=== PATIENT | female | born 1955 | race Caucasian/White ===

== ENCOUNTER 2020-01-09 09:37 | Outpatient (REF) | payer BC, SELFPAY ==
[2020-01-09 22:13] LABS: CREATININE 0.85 mg/dL (0.55-1.02); Calculated LDL 140 mg/dL (<100); Cholesterol 227 mg/dL (<200); HDL Cholesterol 70 mg/dL (40-60); TSH 0.17 uIU/mL (0.36-3.74); Triglyceride 89 mg/dL (<150)
== END 2020-01-09 09:57 ==
LOC: NCHCN 09:37
PROVIDERS: PCP Family Medicine; Visit Provider Family Medicine
DX: E03.9 Hypothyroidism, unspecified (principal); I10 Essential (primary) hypertension
CPT/HCPCS: 80061; 82565; 84443

== ENCOUNTER 2020-05-21 22:34 | Outpatient (REF) | payer BC, SELFPAY ==
[2020-05-21 22:17] LABS: Anion Gap 7.9 mmol/L (3-11); BUN 15 mg/dL (7-18); CO2 29.1 mmol/L (21.0-32.0); Calcium 9.4 mg/dL (8.5-10.1); Chloride 100 mmol/L (98-107); Glucose 111 mg/dL (74-106); Potassium 4.1 mmol/L (3.5-5.1); Sodium 137 mmol/L (136-145); TSH (W/Ref FT4) 1.85 uIU/mL (0.36-3.74)
== END 2020-05-21 22:54 ==
LOC: NCHCN 22:34
PROVIDERS: PCP Family Medicine; Visit Provider Family Medicine
DX: E03.9 Hypothyroidism, unspecified (principal); I10 Essential (primary) hypertension
CPT/HCPCS: 80048; 84443

== ENCOUNTER 2020-07-05 14:43 | Outpatient (REF) | payer BC, SELFPAY ==
[2020-07-09 03:41] LABS: SARS-CoV-2 RNA Undetected (Undetected); SARS-CoV-2 Specimen Source Nasopharynx
== END 2020-07-05 15:03 ==
LOC: NCHCN 14:43
PROVIDERS: PCP Family Medicine; Visit Provider Family Medicine
DX: Z20.828 Contact with and (suspected) exposure to other viral communicable diseases (principal)
CPT/HCPCS: U0003

== ENCOUNTER 2020-09-09 13:28 | Outpatient (REF) | payer BC, SELFPAY ==
[2020-09-12 02:42] LABS: SARS-CoV-2 RNA Undetected (Undetected); SARS-CoV-2 Specimen Source Nasal
== END 2020-09-09 13:48 ==
LOC: NCHCN 13:28
PROVIDERS: PCP Family Medicine; Visit Provider Family Medicine
DX: Z20.828 Contact with and (suspected) exposure to other viral communicable diseases (principal)
CPT/HCPCS: U0003

== ENCOUNTER 2021-06-11 18:18 | Outpatient (REF) | payer MEDICARE, BC, SELFPAY ==
[2021-06-11 19:13] LABS: ALT 51 U/L (14-59); AST 28 U/L (15-37); Alkaline Phosphatase 80 U/L (46-116); Anion Gap 9.3 mmol/L (3-11); BUN 20 mg/dL (7-18); Bilirubin, Total 0.4 mg/dL (0.2-1.0); CO2 27.7 mmol/L (21.0-32.0); CREATININE 0.9 mg/dL (0.55-1.02); Calcium 9.2 mg/dL (8.5-10.1); Calculated LDL 137 mg/dL (<100); Chloride 103 mmol/L (98-107); Cholesterol 234 mg/dL (<200); Glucose 103 mg/dL (74-106); HDL Cholesterol 84 mg/dL (40-60); Potassium 4.2 mmol/L (3.5-5.1); Sodium 140 mmol/L (136-145); TSH 1.13 uIU/mL (0.36-3.74); Total Protein 7.4 g/dL (6.4-8.2); Triglyceride 66 mg/dL (<150)
== END 2021-06-11 18:19 | disposition home or self-care (01) ==
LOC: NCHCN 18:18
PROVIDERS: PCP Family Medicine; Visit Provider Family Medicine
DX: Z00.00 Encounter for general adult medical examination without abnormal findings (principal); R73.03 Prediabetes; E78.49 Other hyperlipidemia; E66.9 Obesity, unspecified; E03.9 Hypothyroidism, unspecified; I10 Essential (primary) hypertension
CPT/HCPCS: 80053; 80061; 84443

== ENCOUNTER 2022-06-23 15:01 | Outpatient (REF) | payer MEDICARE, BC, SELFPAY ==
[2022-06-23 17:22] LABS: ALT 42 U/L (14-59); AST 29 U/L (15-37); Albumin 3.7 g/dL (3.4-5.0); Alkaline Phosphatase 81 U/L (46-116); Anion Gap 8.9 mmol/L (3-11); BUN 16 mg/dL (7-18); Bilirubin, Total 0.3 mg/dL (0.2-1.0); CO2 27.1 mmol/L (21.0-32.0); CREATININE 1.1 mg/dL (0.55-1.02); Calcium 9.3 mg/dL (8.5-10.1); Calculated LDL 126 mg/dL (<100); Chloride 103 mmol/L (98-107); Cholesterol 218 mg/dL (<200); Estimated GFR 49.25 (mL/min/1.73m2); Glucose 115 mg/dL (74-106); HDL Cholesterol 81 mg/dL (40-60); Potassium 3.7 mmol/L (3.5-5.1); Sodium 139 mmol/L (136-145); TSH 0.53 uIU/mL (0.36-3.74); Total Protein 7.4 g/dL (6.4-8.2); Triglyceride 56 mg/dL (<150)
== END 2022-06-23 15:02 | disposition home or self-care (01) ==
LOC: NCHCN 15:01
PROVIDERS: PCP Family Medicine; Visit Provider Family Medicine
DX: E03.9 Hypothyroidism, unspecified (principal); I10 Essential (primary) hypertension; E78.41 Elevated Lipoprotein(a); R73.03 Prediabetes
CPT/HCPCS: 80053; 80061; 83036; 84443

== ENCOUNTER 2022-10-23 13:13 | Outpatient (REF) | payer MEDICARE, BC, SELFPAY ==
[2022-10-23 16:05] LABS: COMMENT (LAB VIEW ONLY) 22.29 mg/dL; Microalb ug/mg Crea 11.7 ug/mg Cr
[2022-10-23 16:22] LABS: BUN 23 mg/dL (7-18); CREATININE 1.1 mg/dL (0.55-1.02); Calcium 9.5 mg/dL (8.5-10.1); Chloride 100 mmol/L (98-107); Estimated GFR 54.39 (mL/min/1.73m2); Glucose 98 mg/dL (74-106); Potassium 4.3 mmol/L (3.5-5.1); Sodium 138 mmol/L (136-145)
== END 2022-10-23 13:14 | disposition home or self-care (01) ==
LOC: NCHCN 13:13
PROVIDERS: PCP Family Medicine; Visit Provider Family Medicine
DX: N18.31 Chronic kidney disease, stage 3a (principal)
CPT/HCPCS: 80048; 82043; 82570

== ENCOUNTER 2023-11-08 16:20 | Outpatient (REF) | payer MEDICARE, BC, SELFPAY ==
[2023-11-08 16:26] LABS: Anion Gap 10.5 mmol/L (3-11); BUN 20 mg/dL (7-18); CO2 26.5 mmol/L (21.0-32.0); Calcium 9.6 mg/dL (8.5-10.1); Calculated LDL 128 mg/dL (<100); Chloride 101 mmol/L (98-107); Cholesterol 239 mg/dL (<200); Estimated GFR 60.61 (mL/min/1.73m2); Glucose 112 mg/dL (74-106); HDL Cholesterol 95 mg/dL (40-60); Potassium 3.8 mmol/L (3.5-5.1); Sodium 138 mmol/L (136-145); Triglyceride 81 mg/dL (<150)
[2023-11-08 16:35] LABS: Hemoglobin A1C 5.8 % (<5.7)
== END 2023-11-08 16:21 | disposition home or self-care (01) ==
LOC: NCHCN 16:20
PROVIDERS: PCP Family Medicine; Visit Provider Family Medicine
DX: E78.5 Hyperlipidemia, unspecified (principal); R73.03 Prediabetes; M81.0 Age-related osteoporosis without current pathological fracture; E66.8 Other obesity
CPT/HCPCS: 80048; 80061; 82306; 83036

== ENCOUNTER 2023-12-07 09:24 | Outpatient (REF) | payer MEDICARE, BC, SELFPAY ==
[2023-12-07 14:52] LABS: TSH 1.87 uIU/mL (0.36-3.74)
== END 2023-12-07 09:25 | disposition home or self-care (01) ==
LOC: NCHCN 09:24
PROVIDERS: PCP Family Medicine; Visit Provider Family Medicine
DX: E03.9 Hypothyroidism, unspecified (principal)
CPT/HCPCS: 84443

== ENCOUNTER 2024-05-12 10:39 | Outpatient (REF) | payer MEDICARE, BC, SELFPAY ==
[2024-05-12 15:16] LABS: Vitamin D 25 Total 16.5 ng/mL (30-100)
== END 2024-05-12 10:40 | disposition home or self-care (01) ==
LOC: NCHCN 10:39
PROVIDERS: PCP Family Medicine; Visit Provider Family Medicine
DX: E55.9 Vitamin D deficiency, unspecified (principal)
CPT/HCPCS: 82306

== ENCOUNTER 2024-11-10 13:00 | Outpatient (REF) | payer MEDICARE, BC, SELFPAY ==
[2024-11-10 16:24] LABS: Anion Gap 8.7 mmol/L (3-11); BUN 12 mg/dL (7-18); CO2 30.3 mmol/L (21.0-32.0); CREATININE 1.1 mg/dL (0.55-1.02); Calcium 10.1 mg/dL (8.5-10.1); Chloride 102 mmol/L (98-107); Estimated GFR 53.72 (mL/min/1.73m2); Glucose 106 mg/dL (74-106); Potassium 4.3 mmol/L (3.5-5.1); Sodium 141 mmol/L (136-145); Vitamin D 25 Total 69.1 ng/mL (30-100)
== END 2024-11-10 13:01 | disposition home or self-care (01) ==
LOC: NCHCN 13:00
PROVIDERS: PCP Family Medicine; Visit Provider Family Medicine
DX: E55.9 Vitamin D deficiency, unspecified (principal)
CPT/HCPCS: 80048; 82306

== ENCOUNTER 2025-05-14 15:18 | Outpatient (REF) | payer MEDICARE, BC, SELFPAY ==
[2025-05-14 16:11] LABS: Calculated LDL 97 mg/dL (<100); Cholesterol 193 mg/dL (<200); HDL Cholesterol 86 mg/dL (>or=50); TSH 0.45 uIU/mL (0.36-3.74); Triglyceride 54 mg/dL (<150)
== END 2025-05-14 15:19 | disposition home or self-care (01) ==
LOC: NCHCN 15:18
PROVIDERS: PCP Family Medicine; Visit Provider Family Medicine
DX: E03.9 Hypothyroidism, unspecified (principal)
CPT/HCPCS: 80061; 84443

== ENCOUNTER 2025-11-12 10:07 | Outpatient (REF) | payer MEDICARE, BC, SELFPAY ==
[2025-11-12 16:09] LABS: Cholesterol 201 mg/dL (<200); HDL Cholesterol 91 mg/dL (>or=50)
== END 2025-11-12 10:08 | disposition home or self-care (01) ==
LOC: NCHCN 10:07
PROVIDERS: PCP Family Medicine; Visit Provider Family Medicine
DX: E78.5 Hyperlipidemia, unspecified (principal); R73.03 Prediabetes
CPT/HCPCS: 80061; 82043; 82570